=== PATIENT | male | born 1960 | race Caucasian/White ===

== ENCOUNTER 2018-11-03 03:19 | Inpatient (IN) | payer MEDICAID ==
[2018-11-03] VITALS (8 sets, daily range): BP systolic 104–131; BP diastolic 64–85
[~2018-11-03] VITALS: Ht 160 cm; Wt 74.4 kg
[2018-11-03] MEDS ORDERED: SODIUM CHLORIDE 0.9% 1,000 ML IV SCH (03:33)
[2018-11-03] MEDS ORDERED: ONDANSETRON HCL 4MG/2ML INJ IV ONE (03:45)
[2018-11-03] MEDS ORDERED: DEXAMETHASONE 10 MG/ML VIAL IV ONE (03:45)
[2018-11-03] MEDS ORDERED: FAMOTIDINE 20MG/2ML VIAL IV ONE (03:45)
[2018-11-03] MEDS ORDERED: DIPHENHYDRAMINE 50MG/ML VIAL IV ONE (03:45)
[2018-11-03 03:59] LABS: BASOPHILS % 1.1 % (0.0-2.0); EOSINOPHILS % 2.4 % (0.0-5.0); HEMATOCRIT. 47.1 % (42.0-52.0); HEMOGLOBIN. 16.4 g/dL (14.0-18.0); MEAN CORPUSCULAR HEMOGLOBIN 35.7 pg (28.0-32.0); MEAN CORPUSCULAR VOLUME 102.5 fL (80.0-94.0); MEAN PLATELET VOLUME 7.3 fl (7.4-10.4); MONOCYTES % 5.4 % (2.0-8.0); NEUTROPHILS % 58.1 % (40.0-76.0); PLATELET 261 x1000/uL (130-400); RED CELL DISTRIBUTION WIDTH 12.7 % (11.6-14.6)
[2018-11-03 04:02] LABS: CHLORIDE 111 mEq/L (98-107)
[2018-11-03] MEDS ORDERED: IPRATROPIUM/ALBUTEROL 0.5-3(2.5)MG/3ML NEB HHN PRN (09:45)
[2018-11-03] MEDS ORDERED: ONDANSETRON HCL 4MG/2ML INJ IV PRN (10:15)
[2018-11-03] MEDS ORDERED: ACETAMINOPHEN 325MG TABLET PO PRN (10:15)
[2018-11-03] MEDS: FAMOTIDINE 20MG/2ML VIAL IV SCH ×2 (10:51→20:31)
[2018-11-03] MEDS: METHYLPREDNISOLONE SOD SUCC 40 MG/ML VIAL IV SCH ×2 (10:51→17:40)
[2018-11-03 11:48] LABS: CLARITY URINE CLEAR (CLEAR); COLOR URINE YELLOW (YELLOW); KETONES URINE NEGATIVE (NEGATIVE); LEUKOCYTE ESTERASE URINE NEGATIVE (NEGATIVE); NITRITE URINE NEGATIVE (NEGATIVE); OCCULT BLOOD URINE NEGATIVE (NEGATIVE); PH URINE 6.5 (4.5-8.0); PROTEIN URINE NEGATIVE (NEGATIVE); UROBILINOGEN URINE 0.2 E.U./dL (0.2-1.0)
[2018-11-03] MEDS: DIPHENHYDRAMINE 50MG/ML VIAL IV SCH ×2 (11:54→17:40)
[2018-11-03] MEDS: PHENOL/SODIUM PHENOLATE 1.4% SRPAY 177ML MM PRN (11:54)
[2018-11-03] MEDS ORDERED: KETOROLAC 30MG/ML VIAL IV PRN (12:15)
[2018-11-03 12:18] LABS: *AMPHETAMINES SCREEN URINE NEGATIVE (NEGATIVE); *BARBITURATES SCREEN URINE NEGATIVE (NEGATIVE); *BENZODIAZEPINES SCREEN URINE NEGATIVE (NEGATIVE); *COCAINE SCREEN URINE NEGATIVE (NEGATIVE); METHADONE URINE SCREEN NEGATIVE (NEGATIVE); OPIATES URINE SCREEN NEGATIVE (NEGATIVE); PHENCYCLIDINE URINE SCREEN NEGATIVE (NEGATIVE)
[2018-11-03 12:19] LABS: CANNABINOID URINE SCREEN NEGATIVE (NEGATIVE)
[2018-11-03] MEDS: THROAT LOZENGES-BENZOCAINE/MENTH/CETYLPYRD CL LOZENGES MM PRN (13:42)
[2018-11-03] MEDS: NICOTINE 7MG PATCH TD SCH (15:43)
[2018-11-03] MEDS ORDERED: MONTELUKAST SODIUM 10MG TABLET PO SCH (17:00)
[2018-11-04] VITALS (7 sets, daily range): BP systolic 101–124; BP diastolic 54–75
[2018-11-04] MEDS: DIPHENHYDRAMINE 50MG/ML VIAL IV SCH ×3 (00:36→11:48)
[2018-11-04] MEDS: METHYLPREDNISOLONE SOD SUCC 40 MG/ML VIAL IV SCH ×2 (01:50→08:38)
[2018-11-04] MEDS: THROAT LOZENGES-BENZOCAINE/MENTH/CETYLPYRD CL LOZENGES MM PRN (05:25)
[2018-11-04 06:45] LABS: CHLORIDE 106 mEq/L (98-107)
[2018-11-04 06:58] LABS: BASOPHILS % 0.2 % (0.0-2.0); EOSINOPHILS % 0.1 % (0.0-5.0); HEMATOCRIT. 44.6 % (42.0-52.0); HEMOGLOBIN. 15.6 g/dL (14.0-18.0); LYMPHOCYTES % 10.1 % (20.0-50.0); MEAN CORPUSCULAR HEMOGLOBIN 35.8 pg (28.0-32.0); MEAN CORPUSCULAR VOLUME 102.2 fL (80.0-94.0); MEAN PLATELET VOLUME 8.2 fl (7.4-10.4); NEUTROPHILS % 87.6 % (40.0-76.0); PLATELET 228 x1000/uL (130-400); RED BLOOD CELL COUNT 4.37 mill/uL (4.7-6.1); RED CELL DISTRIBUTION WIDTH 12.6 % (11.6-14.6)
[2018-11-04] MEDS: NICOTINE 7MG PATCH TD SCH (08:38)
[2018-11-04] MEDS: FAMOTIDINE 20MG/2ML VIAL IV SCH (08:38)
[2018-11-04] MEDS: PHENOL/SODIUM PHENOLATE 1.4% SRPAY 177ML MM PRN (10:34)
[2018-11-04] MEDS ORDERED: FLUTICASONE PROPIONATE 50MCG/SPRAY BOTTLE BOTHNSTRLS SCH (21:00)
[2018-11-04] MEDS ORDERED: LORATADINE 10MG TABLET PO SCH (21:00)
== END 2018-11-04 13:31 | disposition home or self-care (01) | DRG 816 ==
LOC: ER 03:19 → EDBD 03:19 → 5EST 05:25 → EDBEDREQ 05:30 → EDBEDREQSVC 05:30 → EDBEDREQTM 05:30 → ENRESERV 07:05
PROVIDERS: ADMIT Internal Medicine; ATTEND Internal Medicine
DX: T59.891A Toxic effect of other specified gases, fumes and vapors, accidental (unintentional), initial encounter (principal); J96.91 Respiratory failure, unspecified with hypoxia; J44.1 Chronic obstructive pulmonary disease with (acute) exacerbation; E87.8 Other disorders of electrolyte and fluid balance, not elsewhere classified; F17.210 Nicotine dependence, cigarettes, uncomplicated; K12.2 Cellulitis and abscess of mouth; Z71.6 Tobacco abuse counseling; Z79.899 Other long term (current) drug therapy; Y92.89 Other specified places as the place of occurrence of the external cause
CPT/HCPCS: 36415; 71045; 80048; 80305; 81003; 83036; 92610; 93970; 99291; J1100; J1200; J2405; J2920; J3490

== ENCOUNTER 2020-05-19 08:15 | Inpatient (IN) | payer MEDICAID ==
[~2020-05-19] VITALS: Ht 157.5 cm; Wt 84.4 kg
[2020-05-19] MEDS ORDERED: SODIUM CHLORIDE 0.9% 1,000 ML IV ONE (09:00)
[2020-05-19 09:05] LABS: BASOPHILS % 0.8 % (0.0-2.0); EOSINOPHILS % 1.5 % (0.0-5.0); HEMATOCRIT. 45.6 % (42.0-52.0); HEMOGLOBIN. 15.6 g/dL (14.0-18.0); LYMPHOCYTES % 42.5 % (20.0-50.0); MEAN CORPUSCULAR HEMOGLOBIN 35.7 pg (28.0-32.0); MEAN CORPUSCULAR VOLUME 104.6 fL (80.0-94.0); MEAN PLATELET VOLUME 7.2 fl (7.4-10.4); MONOCYTES % 6.5 % (2.0-8.0); NEUTROPHILS % 48.7 % (40.0-76.0); PLATELET 217 x1000/uL (130-400); RED BLOOD CELL COUNT 4.36 mill/uL (4.7-6.1); RED CELL DISTRIBUTION WIDTH 12.8 % (11.6-14.6)
[2020-05-19 09:09] LABS: CHLORIDE 104 mEq/L (98-107)
[2020-05-19 09:13] LABS: ETHANOL BLOOD < 10 mg/dL
[2020-05-19] MEDS ORDERED: FAMOTIDINE 20MG/2ML VIAL IV ONE (09:30)
[2020-05-19] MEDS ORDERED: AZITHROMYCIN 500 MG in DEXT 5% WATER 250 ML IV ONE (10:00)
[2020-05-19] MEDS ORDERED: CEFTRIAXONE 1 G PREMIX 50 ML IV ONE (10:00)
[2020-05-19] MEDS ORDERED: DEXAMETHASONE 10 MG/ML VIAL IV ONE (10:15)
[2020-05-19 10:48] LABS: CLARITY URINE CLEAR (CLEAR); COLOR URINE YELLOW (YELLOW); KETONES URINE NEGATIVE (NEGATIVE); LEUKOCYTE ESTERASE URINE NEGATIVE (NEGATIVE); NITRITE URINE NEGATIVE (NEGATIVE); OCCULT BLOOD URINE NEGATIVE (NEGATIVE); PROTEIN URINE NEGATIVE (NEGATIVE); UROBILINOGEN URINE 0.2 E.U./dL (0.2-1.0)
[2020-05-19 11:00] LABS: *AMPHETAMINES SCREEN URINE NEGATIVE (NEGATIVE); *BARBITURATES SCREEN URINE NEGATIVE (NEGATIVE); *BENZODIAZEPINES SCREEN URINE NEGATIVE (NEGATIVE)
[2020-05-19 11:01] LABS: *COCAINE SCREEN URINE NEGATIVE (NEGATIVE); CANNABINOID URINE SCREEN NEGATIVE (NEGATIVE); METHADONE URINE SCREEN NEGATIVE (NEGATIVE); OPIATES URINE SCREEN NEGATIVE (NEGATIVE); PHENCYCLIDINE URINE SCREEN NEGATIVE (NEGATIVE)
[2020-05-19] MEDS ORDERED: ONDANSETRON HCL 4MG/2ML INJ IV PRN (11:30)
[2020-05-19] MEDS ORDERED: LACTULOSE 20G/30ML UDC PO SCH (11:30)
[2020-05-19] MEDS ORDERED: ACETAMINOPHEN 325MG TABLET PO PRN (11:30)
[2020-05-19] MEDS: TRAMADOL 50MG TABLET PO PRN ×2 (14:37→22:26)
[2020-05-19 16:45] VITALS: BP_SYST 127; BP_SYST 152; BP_DIAS 91
[2020-05-19] MEDS ORDERED: FLUT1DIS3 INH (17:12)
[2020-05-19] MEDS ORDERED: ALBU18HF2 IH (17:12)
[2020-05-19] MEDS ORDERED: FAMO40TA7 MT (17:30)
[2020-05-19] MEDS ORDERED: MULT-1116 PO (17:31)
[2020-05-19 20:30] VITALS: BP 142/86
[2020-05-19] MEDS: FAMOTIDINE 20MG TABLET PO SCH (20:49)
[2020-05-20] VITALS: BP 110/65
[2020-05-20 04:00] VITALS: BP 120/76
[2020-05-20 08:00] VITALS: BP_SYST 113; BP_SYST 123; BP_SYST 130; BP_DIAS 70; BP_DIAS 71; BP_DIAS 77
[2020-05-20] MEDS: DOCUSATE SODIUM 250MG CAPSULE PO SCH (08:50)
[2020-05-20] MEDS: CEFTRIAXONE 1,000 MG in DEXTROSE 5% WATER 50 ML IV SCH (08:50)
[2020-05-20] MEDS: AZITHROMYCIN 250 MG TABLET PO SCH (08:55)
[2020-05-20] MEDS ORDERED: CEFTRIAXONE 1 G PREMIX 50 ML IV SCH (11:30)
[2020-05-20 12:00] VITALS: BP 103/54
[2020-05-20 16:00] VITALS: BP 99/54
[2020-05-20 20:00] VITALS: BP 118/76
[2020-05-20] MEDS: FAMOTIDINE 20MG TABLET PO SCH (20:41)
[2020-05-21] VITALS: BP 126/72
[2020-05-21 04:00] VITALS: BP 92/56
[2020-05-21 07:03] LABS: BASOPHILS % 0.6 % (0.0-2.0); EOSINOPHILS % 0.9 % (0.0-5.0); HEMATOCRIT. 44.6 % (42.0-52.0); HEMOGLOBIN. 15.4 g/dL (14.0-18.0); LYMPHOCYTES % 49.3 % (20.0-50.0); MEAN CORPUSCULAR HEMOGLOBIN 36.1 pg (28.0-32.0); MEAN CORPUSCULAR VOLUME 104.5 fL (80.0-94.0); MEAN PLATELET VOLUME 7.7 fl (7.4-10.4); MONOCYTES % 5.9 % (2.0-8.0); NEUTROPHILS % 43.3 % (40.0-76.0); PLATELET 219 x1000/uL (130-400); RED BLOOD CELL COUNT 4.27 mill/uL (4.7-6.1); RED CELL DISTRIBUTION WIDTH 13.1 % (11.6-14.6)
[2020-05-21 07:14] LABS: CHLORIDE 106 mEq/L (98-107)
[2020-05-21 08:00] VITALS: BP 118/77
[2020-05-21] MEDS: AZITHROMYCIN 250 MG TABLET PO SCH (08:37)
[2020-05-21] MEDS: DOCUSATE SODIUM 250MG CAPSULE PO SCH (08:37)
[2020-05-21] MEDS: CEFTRIAXONE 1,000 MG in DEXTROSE 5% WATER 50 ML IV SCH (08:37)
[2020-05-21 12:00] VITALS: BP 114/73
[2020-05-21 13:56] VITALS: BP 114/73
== END 2020-05-21 15:05 | disposition home or self-care (01) | DRG 48 ==
LOC: ER 08:15 → 7WST 10:49 → ENRESERV 16:00 → 5WST 22:13
PROVIDERS: ADMIT Internal Medicine; ATTEND Internal Medicine
DX: G90.8 Other disorders of autonomic nervous system (principal); E66.9 Obesity, unspecified; Z20.822 Contact with and (suspected) exposure to COVID-19; F17.210 Nicotine dependence, cigarettes, uncomplicated; I10 Essential (primary) hypertension; J44.0 Chronic obstructive pulmonary disease with (acute) lower respiratory infection; K76.0 Fatty (change of) liver, not elsewhere classified; K21.9 Gastro-esophageal reflux disease without esophagitis; J18.9 Pneumonia, unspecified organism; Z71.6 Tobacco abuse counseling; Z71.3 Dietary counseling and surveillance; Z68.34 Body mass index [BMI] 34.0-34.9, adult
CPT/HCPCS: 36415; 70551; 71045; 74176; 80048; 80053; 80305; 80320; 81003; 83605; 83880; 84484; 85025; 93005; 99285; J0456; J0696; J1100; J3490; J7030; J7040; J7060; U0003; G0480